=== PATIENT | male | born 2000 | race Caucasian/White ===

== ENCOUNTER 2019-03-05 20:03 | Emergency (ER) | payer OTHER, SELFPAY ==
[2019-03-05 20:04] VITALS: BP 142/83; PULSE 108; RESP 16; TEMP 36.8; O2SAT 97; BMI 23.7
[2019-03-05 20:36] VITALS: TEMP 36.8
--- NOTE | 2019-03-05 20:39 | RAD_ITS ---
STUDY: X-RAY CHEST REASON FOR EXAM: Male, 18 years old. Cough, difficulty breathing. TECHNIQUE: PA and lateral chest. COMPARISON: 09/30/2017. FINDINGS: The lungs are clear and expanded. There is no demonstrated pleural abnormality. Normal size heart. Normal mediastinum and leyda. Normal visualized pulmonary arteries. Normal visualized aortic arch and descending thoracic aorta. Normal visualized thoracic spine. Normal visualized ribs, clavicles, and shoulders. There is no demonstrated abnormality of the visualized soft tissue structures of the upper abdomen. RAD/Chest PA and Lateral IMPRESSION: Normal x-ray examination of the chest. Electronically Signed: Connie Rosado MD at 21:27 EDT Tel , Service support ,
--- NOTE | 2019-03-05 20:39 | ED.VIS.GEN ---
History of Present Illness Chief Complaint: Cough Detail of Chief Complaint: Persistent cough and difficulty breathing Informant: Patient, Family Onset: Days - Onset Thursday. Diagnosed with strep throat Thursday. Presently on amoxicillin Context: Sudden Onset Timing: Continuous Quality: Rhinorrhea, congestion, sore throat and minimally productive cough Location: Respiratory Current Severity: Mild Maximum Severity: Moderate Worsened by: Swallowing and coughing Relieved by: Nothing Associated Symptoms: Subjective fever with sweats Narrative: Patient is 18-year-old male who uses vapor device presents with cough that is minimally productive. He was diagnosed on Thursday with strep pharyngitis. He is present on amoxicillin. He reports nasal congestion postnasal drainage. He reports sore throat. Denies ear pain or ringing of his ears or decreased hearing. He reports pain in his chest with coughing. He reports blood-tinged sputum. He did denies nausea, vomiting diarrhea. He denies myalgias, arthralgias or generalized weakness. He does report malaise. States he has no energy. Prior similar symptoms: No Recent Illness/Hospitalization: Yes - Past Medical History (1) Streptococcal pharyngitis Status: Acute Past Medical History - Allergies and Home Meds Allergies/Adverse Reactions: Allergies No Known Allergies Allergy (Verified 09/30/17 19:47) Primary Care Physician: Dwain Dodd DO [Primary Care Provider] - Past Medical History: None Surgical History: no surgical history Lives: With Family Smoking Status: Current every day smoker Alcohol: None Review of Systems General: Reports: Chills, Fever, Malaise, Subjective, Sweats. Denies: Weight loss Eyes: Denies: Visual changes - bilaterally, Blurred Vision - bilaterally, Diplopia ENT: Reports: Rhinorrhea, Sore throat. Denies: Bilateral ear pain Cardiovascular: Denies: Chest pain, Palpitations Respiratory: Reports: Dyspnea, Cough, Sputum - With blood-tinged sputum. Denies: Dyspnea on exertion, Orthopnea, Paroxysmal nocturnal dyspnea Gastrointestinal: Denies: Abdominal pain, Nausea, Vomiting, Diarrhea, Melena, Hematochezia Genitourinary: Denies: Dysuria, Hematuria, Frequency Musculoskeletal: Denies: Back pain, Extremity Pain Skin: Denies: Rash, Wounds Neurological: Denies: Headache, Weakness, Numbness Hematologic: Denies: Easy bruising Allergy: Denies: Uticaria, Swelling of the mouth Physical Exam Vital Signs/Narrative: Vital Signs Temp Pulse Resp BP Pulse Ox 03/05/19 20:36 98.3 F 03/05/19 20:04 98.3 F 108 H 16 142/83 H 97 Inital Vital Signs reviewed: Yes General: Well nourished, Well developed, No Acute Distress Head: Normocephalic, Atraumatic Eyes: Perrl, EOMI ENT: Moist mucous membranes, No rhinorrhea Neck: Supple, Nontender Cardiovascular: Regular rhythm, No murmurs, Normal S1, Normal S2, Tachycardia Respiratory: No distress, CTA bilaterally, Chest nontender Abdomen: Soft, Nontender, Nondistended, Normal bowel sounds Back: Nontender, Normal Inspection Extremities: Nontender, No edema Skin: Normal color, No rash Neurological: Alert, Oriented x3, Cranial nerves II-XII grossly intact, Normal Strength, Normal Sensation Psychological: Normal affect, Normal Mood Diagnostic/Tx/Re-eval Chest X-Ray - ED: 2 View, Read by ED Physician, Normal, Heart, Lungs, Mediastinum, Bony Structures, No Acute Disease - Medical Decision Making Suspect patient positive strep test is secondary to being a carrier state since his exam is unremarkable. Suspect hemoptysis secondary to ruptured blood vessel from harsh cough. Suspect viral illness with acute bronchitis. Will obtain chest x-ray to confirm there is no significant pathology i.e. pneumonia or mass. Since two-view chest x-ray is negative suspect hemoptysis secondary to coughing and bronchitis. Symptomatic treatment. Will prescribe antitussive agent. Since patient has no wheezing Ventolin metered-dose inhaler was not prescribed. ED Disposition - Plan for ED Patient: Disposition: Home or Assisted Living Diagnosis: Cough with hemoptysis, Acute bronchitis Instructions: ED Upper Resp Infec No Abx Tx, ED Hemoptysis Prescriptions: Hydrocodone Bit/Homatropine [Hycodan Syrup] 5 ml PO Q6H PRN PRN 2 Days #30 udc PRN Reason: Cough Referrals: Dwain Dodd DO [Primary Care Provider] - 3-5 Days
== END 2019-03-05 21:11 | disposition home or self-care (01) ==
PROVIDERS: Emergency Provider Emergency Medicine; Family Provider Pediatrics; PCP Pediatrics
DX: J20.9 Acute bronchitis, unspecified (principal); R04.2 Hemoptysis; F17.200 Nicotine dependence, unspecified, uncomplicated
CPT/HCPCS: 71046; 99283

== ENCOUNTER 2022-09-16 19:24 | Emergency (ER) | payer OTHER, SELFPAY ==
[2022-09-16 19:25] VITALS: BP 146/93; PULSE 114; RESP 18; TEMP 36.2; O2SAT 97; BMI 27.5
--- NOTE | 2022-09-16 20:55 | EX.ED.DYSGE1 ---
HPI History of Present Illness Chief Complaint: Cold Sx Detail of Chief Complaint: Influenza Informant: patient Narrative Narrative: Patient presents the emergency department complaint of having the flu. Patient states that he started having symptoms 3 days ago. Patient states he flew here from [place] to visit family. Patient was seen at urgent care yesterday and tested positive for influenza A. Patient states that he has had nausea and has been vomiting in the middle of the night x1 each of the last 2 nights. Patient complains of body aches and headache. Complains of cough. Patient complained of some chest pain and shortness of breath today to his mother. PFSH PFSH Home Medications ondansetron 4 mg disintegrating tablet 4 mg PO Q8H PRN PRN Nausea #10 tabs 09/16/22 [Rx Last Taken Unknown] sertraline 50 mg tablet 100 mg PO DAILY 09/16/22 [History Last Taken Unknown] Allergy/AdvReac Type Severity Reaction Status Date / Time No Known Allergies Allergy Verified 09/16/22 19:27 Social History Smoking Status: Current every day smoker tobacco type: e-cigarettes ROS ROS ED Review of Systems ROS Unobtainable: other Constitutional Constitutional ED: Reports lethargy; Denies chills, fever(s), sweats or weight loss Eyes Eyes: Denies blurry vision, change in vision or diplopia ENT ENT ED: Denies rhinorrhea or sore throat Cardiovascular Cardiovascular: Reports chest pain; Denies orthopnea or racing heartbeat Respiratory/Chest Respiratory/Chest: Reports dyspnea; Denies cough, dyspnea on exertion, orthopnea or sputum Gastrointestinal Gastrointestinal: Denies abdominal pain, diarrhea, nausea or vomiting Genitourinary Genitourinary ED: Denies dysuria, hematuria or urinary frequency Musculoskeletal Musculoskeletal: Reports myalgias; Denies arthralgias, back pain or neck pain Integumentary Denies abscess, Abrasions or rash Neurologic Neurologic: Reports headache(s); Denies weakness Psychiatric Psychiatric: Denies anxiety, depression or suicidal thoughts Endocrine Endocrinology: Denies polydipsia, polyphagia or polyuria Hematologic/Lymphatic Hematologic/Lymphatic: Denies easy bleeding, easy bruising or lymphadenopathy Allergic/Immunologic Allergic/Immunologic ED: Denies mouth swelling, tongue swelling or urticaria EXAM Physical Exam Narrative Exam Narrative: Ill-appearing but nontoxic. Const Vital Signs: 09/16/22 19:25 09/16/22 20:32 Temperature 97.1 F L Temperature Source Temporal Pulse Rate 114 H Respiratory Rate 18 Respiratory Effort Normal Respiratory Pattern Normal Blood Pressure 146/93 H Blood Pressure Mean 110 Pulse Ox 97 Oxygen Delivery Method Room Air Positive well nourished and well developed General Appearance ED: well developed and NAD HEENT Reports TM's clear and moist mucous membranes normocephalic and atraumatic; Negative for trauma or tenderness Tympanic Membrane ED: Yes TM's clear Eyes PERRL and EOMs intact bilaterally General Eye ED: Negative for pale conjunctiva or scleral icterus Neck no lymphadenopathy, supple and no JVD General: Negative for tenderness Chest Wall inspection of chest normal and palpation of chest normal Chest: Negative for tenderness Resp normal respiratory effort and clear to auscultation bilaterally Effort and Inspection: Negative for respiratory distress or pain with movement Auscultation: Negative for rhonchi, wheezes or diminished lung sounds Cardio regular rate, regular rhythm, S1 normal heart sound, S2 normal heart sound and no murmurs Peripheral Pulses: pulses 2+ throughout GI normal to inspection, nondistended, normoactive bowel sounds, soft to palpation, non-tender, non-distended and no masses Back/Spine no CVA tenderness and no thoracic nor lumbar tenderness Extremity normal to inspection General Extremety ED: Negative for edema General Extremity: Negative for edema Neuro oriented x3, CN's II-XII intact bilaterally, no sensory deficits noted and gait normal Sensorium / Orientation: awake, alert, oriented to person, oriented to place and oriented to time Motor Exam: strength 5/5 throughout and strength abnormal Psych mental status grossly normal Skin no rashes or lesions noted and no wounds MDM MDM MDM Narrative Medical decision making narrative: IV line established on arrival. Patient was given liter normal same fluid bolus. Patient was given Toradol 30 mg IV and Zofran 4 mg IV. Patient felt improved. At this point he is not a candidate for Tamiflu as he has had symptoms for 3 days. Patient will be given a prescription for Zofran. He is advised use ibuprofen or Tylenol for fever and body aches. Patient to return if increasing shortness of breath or condition should worsen anyway. Discharge Plan Triage Chief Complaint: Cold Sx ED Provider: Aruna Larios Dx/Rx/DC Orders Clinical Impression: Influenza A Instructions: ED Influenza (Adult) Prescriptions: New ondansetron [ondansetron] 4 MG tablet 4 mg PO Q8H PRN PRN (Reason: Nausea) Qty: 10 0RF No Action sertraline 50 mg tablet 100 mg PO DAILY Label Comments: TAKE 1 TABLET BY MOUTH EVERY DAY Primary Care Provider: Dwain Dodd Referrals: Dwain Dodd DO [Primary Care Provider] - Disposition Disposition: Home, Self Care
[2022-09-16] MEDS: 0.9% Normal Saline 1,000 ML 1000 ML IV (21:09)
[2022-09-16] MEDS: Ondansetron 4 MG/2 ML Vial IV (21:09)
[2022-09-16] MEDS: Ketorolac 30 MG/ML Syringe IV (21:09)
== END 2022-09-16 22:14 | disposition home or self-care (01) ==
PROVIDERS: Emergency Provider Emergency Medicine; PCP Pediatrics; Visit Provider Emergency Medicine
DX: J10.1 Influenza due to other identified influenza virus with other respiratory manifestations (principal); R11.2 Nausea with vomiting, unspecified; F17.290 Nicotine dependence, other tobacco product, uncomplicated; Z79.899 Other long term (current) drug therapy
CPT/HCPCS: 96361; 96374; 96375; 99283; J7030; J2405